=== PATIENT | male | born 1935 | race Caucasian/White ===

== ENCOUNTER → 2019-01-22 08:12 | Outpatient (CLI) | payer MEDICARE ==
[2016-01-17 13:03] VITALS: BMI 25.4
[~2019-01-22 08:12] MED LIST: ASPIRIN325 MG PO; COLACE100 MG PO; DYAZIDE 37.5/251 CAP PO; ELIQUIS2.5 MG PO; FLINTSTONE1 TAB.CHEW PO; GLUCOSAMINE HC500 MG PO; LIPITOR40 MG PO; MICRO-K10 MEQ PO; NIASPAN500 MG PO; PERCOCET 10/3251 TA1 PO; VITAMIN D2000 UNIT PO
== END | disposition home or self-care (01) ==
LOC: D.CT 08:12
PROVIDERS: ATTEND Family Medicine
DX: R91.8 Other nonspecific abnormal finding of lung field (principal)

== ENCOUNTER → 2019-02-13 08:15 | Outpatient (CLI) | payer MEDICARE ==
[2016-01-17 13:03] VITALS: BMI 25.4
== END | disposition home or self-care (01) ==
LOC: D.MRI 08:15
PROVIDERS: ATTEND Family Medicine
DX: K86.9 Disease of pancreas, unspecified (principal)

== ENCOUNTER 2019-03-27 06:29 | Outpatient (CLI) | payer MEDICARE ==
[~2019-03-27] VITALS: Ht 188 cm; Wt 86.4 kg
[2019-03-27 07:50] LABS: BASOPHILS 0 % (0-2); EOSINOPHILS 0 % (0-7); HEMATOCRIT 45.7 % (42.0-54.0); HEMOGLOBIN 15.6 g/dL (13.5-17.5); IMMATURE GRANULOCYTES 0.2 % (0-5); LYMPHOCYTES 11.7 % (15-50); MCHC 34.1 g/dL (31.0-37.0); MCV 93.8 fL (80.0-100.0); MEAN PLATELET VOLUME 9.8 fL (7.4-10.4); MONOCYTES 0.6 % (2-11); NEUTROPHILS 87.5 % (40-80); PLATELET COUNT 215 10x3/uL (130-400); RBC 4.87 10x6/uL (4.20-6.10); RDW 12.9 % (11.5-14.5); WBC 8.4 10x3/uL (4.8-10.8)
[2019-03-27 07:56] LABS: APTT 26.8 SECONDS (22.8-39.4); INR 0.94 (0.85-1.17); PROTIME 12.5 SECONDS (11.6-15.0)
[2019-03-27 08:01] LABS: CALCIUM 9.6 mg/dL (8.5-10.1); CARBON DIOXIDE 28.2 mmol/L (21.0-32.0); CREATININE - SERUM 1.2 mg/dL (0.6-1.3); POTASSIUM - SERUM 4.2 mmol/L (3.5-5.1)
[2019-03-27] MEDS ORDERED: ASPIRIN81 MG PO (08:24)
[2019-03-27 08:33] VITALS: BP 143/85; Ht 188 cm; Wt 86.4 kg
[2019-03-27] MEDS ORDERED: PREDNISONE50 MG PO (08:45)
[2019-03-27] MEDS ORDERED: BENADRYL50 MG PO (08:46)
--- NOTE | 2019-03-27 13:44 | NUR ---
1300 IV REMOVED AND INSTRUCTIONS GIVEN TO PT AND .
== END 2019-03-27 13:30 | disposition home or self-care (01) ==
LOC: D.SP 06:29 → D.RAD 09:00 → D.SP 13:30
PROVIDERS: Radiology Vascular & Interventional Radiology; ATTEND Family Medicine
DX: K86.89 Other specified diseases of pancreas (principal)

== ENCOUNTER 2019-04-29 07:40 | Inpatient (IN) | payer MEDICARE ==
[2019-04-28 08:36] LABS: BASOPHILS 0.6 % (0-2); EOSINOPHILS 5.5 % (0-7); HEMATOCRIT 40.9 % (42.0-54.0); HEMOGLOBIN 14.1 g/dL (13.5-17.5); IMMATURE GRANULOCYTES 0.1 % (0-5); LYMPHOCYTES 32.1 % (15-50); MCH 31.7 pg (26.0-34.0); MCHC 34.5 g/dL (31.0-37.0); MCV 91.9 fL (80.0-100.0); MEAN PLATELET VOLUME 9.2 fL (7.4-10.4); MONOCYTES 10.9 % (2-11); NEUTROPHILS 50.8 % (40-80); RBC 4.45 10x6/uL (4.20-6.10); RDW 13.1 % (11.5-14.5); WBC 7.2 10x3/uL (4.8-10.8)
[2019-04-28 08:45] LABS: PLATELET COUNT 165 10x3/uL (130-400)
[2019-04-28 08:59] LABS: ANION GAP 8.8 mmol/L (8-16); CALCIUM 8.8 mg/dL (8.5-10.1); CREATININE - SERUM 1.3 mg/dL (0.6-1.3); POTASSIUM - SERUM 3.8 mmol/L (3.5-5.1)
[~2019-04-29] VITALS: Ht 188 cm; Wt 89.8 kg
[~2019-04-29 07:40] MED LIST changes: +ASPIRIN81 MG PO; +BENADRYL50 MG PO; +MULTI-DAY VITAM1 TAB PO; +PREDNISONE50 MG PO
[2019-04-29 07:59] VITALS: BP 129/81; BMI 25.4
--- NOTE | 2019-04-29 08:27 | NUR ---
2 UNITS PRBCS ON STANDBY AND NOT TO TRANSFUSE PER DR. ANDREWS.
--- NOTE | 2019-04-29 13:45 | NUR ---
REC'D FROM SUGERY SUITE AT TIME EASILY TO AROUSED WHEN NAME IS CALLED. RESP EVEN AND UNLABORED WITH NO DISTRESS NOTED. HAS 02 IN USE VIA N/C @ 2L/M. CAN EXPRESS NEEDS AND WANTS. 3 LAP SITES NOTED TO GABRIELLE. FRANCISCO DRAIN NOTED. ASSESSMENT COMPLETED. AND C/L IN REACH AT BEDSIDE.
[2019-04-29 13:54] VITALS: BP 136/73
[2019-04-29 17:19] VITALS: BP 136/73; BMI 25.4
--- NOTE | 2019-04-29 17:47 | NUR ---
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 FELT THAT MEDICATION WOULD BE TO STRONG AT THE MOMENT. AWAITING RESPONSE.
--- NOTE | 2019-04-29 17:49 | NUR ---
REC'D CALL BACK FROM DR. MENG REC'D NEW ORDERS FOR APAP 650 MG EVERY 6 HRS PRN PAIN. WAS MADE AWARE OF NEW ORDERS. C/L IN REACH AT BEDSIDE.
[2019-04-29 20:00] VITALS: BP 140/81
[2019-04-30] VITALS: BP 118/64
--- NOTE | 2019-04-30 01:12 | NUR ---
I have reviewed this patient and I concur with the Shift Assessment completed by the Licensed Practical Nurse today this shift.
[2019-04-30 04:00] VITALS: BP 105/56
[2019-04-30 05:16] LABS: BASOPHILS 0 % (0-2); EOSINOPHILS 0 % (0-7); HEMOGLOBIN 12.1 g/dL (13.5-17.5); IMMATURE GRANULOCYTES 0.3 % (0-5); LYMPHOCYTES 10.3 % (15-50); MCH 30.9 pg (26.0-34.0); MCHC 32.7 g/dL (31.0-37.0); MEAN PLATELET VOLUME 9.7 fL (7.4-10.4); MONOCYTES 12.2 % (2-11); NEUTROPHILS 77.2 % (40-80); PLATELET COUNT 183 10x3/uL (130-400); RBC 3.92 10x6/uL (4.20-6.10); RDW 13.3 % (11.5-14.5)
[2019-04-30 05:18] LABS: ANION GAP 12.5 mmol/L (8-16); CALCIUM 8.4 mg/dL (8.5-10.1); CARBON DIOXIDE 25.7 mmol/L (21.0-32.0); CREATININE - SERUM 1.3 mg/dL (0.6-1.3); POTASSIUM - SERUM 4.2 mmol/L (3.5-5.1)
[2019-04-30 05:41] LABS: MCV 94.4 fL (80.0-100.0); WBC 11.8 10x3/uL (4.8-10.8)
[2019-04-30 08:23] VITALS: BP 100/49
[2019-04-30 10:31] VITALS: Ht 188 cm; Wt 89.8 kg
[2019-04-30 12:27] VITALS: BP 101/49
[2019-04-30 16:26] VITALS: BP 114/65
[2019-04-30 19:30] VITALS: BP 156/87
[2019-05-01] VITALS: BP 159/87
[2019-05-01 04:00] VITALS: BP 157/84
[2019-05-01 05:57] LABS: BASOPHILS 0.2 % (0-2); EOSINOPHILS 0 % (0-7); HEMATOCRIT 33.7 % (42.0-54.0); HEMOGLOBIN 10.9 g/dL (13.5-17.5); IMMATURE GRANULOCYTES 0.3 % (0-5); MCH 30.4 pg (26.0-34.0); MCHC 32.3 g/dL (31.0-37.0); MCV 93.9 fL (80.0-100.0); MEAN PLATELET VOLUME 9.6 fL (7.4-10.4); MONOCYTES 12.9 % (2-11); NEUTROPHILS 72.6 % (40-80); PLATELET COUNT 164 10x3/uL (130-400); RBC 3.59 10x6/uL (4.20-6.10); RDW 13.5 % (11.5-14.5); WBC 12.5 10x3/uL (4.8-10.8)
[2019-05-01 06:27] LABS: CALCIUM 8.3 mg/dL (8.5-10.1); CARBON DIOXIDE 27.6 mmol/L (21.0-32.0); CREATININE - SERUM 1.1 mg/dL (0.6-1.3); POTASSIUM - SERUM 3.6 mmol/L (3.5-5.1)
--- NOTE | 2019-05-01 08:00 | NUR ---
PATIENT LAYING IN BED. REQUESTS TO GET UP TO CHAIR. NEW LINENS PROVIDED. IV THERAPY DC'ED FROM LEFT HAND WITH TIP INTACT BECAUSE IT WAS LEAKING. CL IN REACH. CHAIR ALARM ON. WCTM
--- NOTE | 2019-05-01 08:24 | NUR ---
I have reviewed this patient and I concur with the Shift Assessment completed by the Licensed Practical Nurse today this shift.
[2019-05-01 10:00] VITALS: BP 132/80
--- NOTE | 2019-05-01 10:02 | NUR ---
NUTRITION F/U CHART REVIEWED. PT STARTED ON CLEAR LIQUID DIET. WILL CONTINUE TO MONITOR DIET ADVANCEMENT, PO INTAKE. RD FOLLOWING
--- NOTE | 2019-05-01 11:30 | NUR ---
IV THERAPY RESITED TO LEFT FOREARM. IV RESTARTED AT 30 ML PER EMAR. WALKED 150 FT WITH . BACK IN BED. CL IN REACH. BED ALARM ON. WCTM
[2019-05-01 13:47] VITALS: BP 102/67
--- NOTE | 2019-05-01 14:16 | NUR ---
PATIENT TOOK ANOTHER 150 FOOT WALK DOWN THE HALLWAY WITH . STATED THAT HE IS NO MORE PAIN AT THIS TIME AFTER HIS WALK. CL IN REACH. WCTM
[2019-05-01 18:09] VITALS: BP 128/79
--- NOTE | 2019-05-01 20:05 | NUR ---
LYING IN BED. ALERT AND ORIENTED. CONFUSED AT TIMES. IRRITABLE. SCDS PLACED ON PT. RESP EVEN AND NONLABORED. FRANCISCO DRAIN TO LT ABD HAS BLOODY DRAINAGE IN BULB. LAP SITE X2 NOTED WITH OLD DRAINAGE. PASSING GAS. BS ARE HYPOACTIVE. NS @ 30 MLHR INFUSING IN LT FOREARM. BED ALARM ON FOR PT SAFETY. SR ELEVATED X2. CL IN REACH. NO DISTRESS.
--- NOTE | 2019-05-01 22:51 | NUR ---
MEDICATED WITH TYLENOL FOR C/O ABD PAIN. CL IN REACH. BED ALARM ON
[2019-05-02] VITALS: BP 144/71
--- NOTE | 2019-05-02 02:33 | NUR ---
RESTING ON RT SIDE IN BED WITH EYES CLOSED. RESP NONLABORED. NO DISTRESS. BED ALARM ON. CL IN REACH.
[2019-05-02 04:00] VITALS: BP 133/73
[2019-05-02 05:26] LABS: BASOPHILS 0.1 % (0-2); EOSINOPHILS 1.6 % (0-7); HEMATOCRIT 31.7 % (42.0-54.0); HEMOGLOBIN 10.5 g/dL (13.5-17.5); IMMATURE GRANULOCYTES 0.2 % (0-5); LYMPHOCYTES 17.6 % (15-50); MCHC 33.1 g/dL (31.0-37.0); MCV 93.5 fL (80.0-100.0); MEAN PLATELET VOLUME 9.5 fL (7.4-10.4); MONOCYTES 14.9 % (2-11); NEUTROPHILS 65.6 % (40-80); PLATELET COUNT 164 10x3/uL (130-400); RBC 3.39 10x6/uL (4.20-6.10); RDW 13.4 % (11.5-14.5); WBC 10.3 10x3/uL (4.8-10.8)
[2019-05-02 05:38] LABS: AMYLASE - SERUM 48 U/L (25-115); CALC OSMOLALITY 283 mosm/kg (275-300); CALCIUM 7.9 mg/dL (8.5-10.1); CARBON DIOXIDE 26.4 mmol/L (21.0-32.0); CHLORIDE - SERUM 107 mmol/L (98-107); CREATININE - SERUM 0.9 mg/dL (0.6-1.3); GLUCOSE 109 mg/dL (74-106); POTASSIUM - SERUM 3.1 mmol/L (3.5-5.1); SODIUM 142 mmol/L (136-145); eGFR NON AFRICAN AMERICAN 85 mL/min (90-120)
[2019-05-02 05:52] LABS: UREA NITROGEN 13 mg/dL (7-18)
--- NOTE | 2019-05-02 08:39 | NUR ---
PATIENT UP IN CHAIR. CHAIR ALARM ON. PROVIDED FRESH WATER. CL IN REACH. URINAL IN REACH. TM
--- NOTE | 2019-05-02 09:21 | MORECARE ---
CASE MANAGEMENT DISCHARGE SUMMARY PATIENT: DAYRON CARPENTER UNIT: [id number] ADM DATE: 04/29/19 AGE: 84 : 35 SEX: M ROOM/BED: D.2212 AUTHOR: AIYANA JAMES PHYSICIAN: REFERRING PHYSICIAN: ARIELA ANDREWS MD DATE OF SERVICE: 05/02/19 Discharge Plan Patient Name: DAYRON CARPENTER [facility] [facility] 1935 Planned Disposition: Home or Self Care Anticipated Discharge Date: Discharge Date: Expected LOS: Initial Reviewer: [email or web address] Initial Review Date: 04/29/2019 Generated: 05/02/19 10:21 am DCPIA - Discharge Planning Initial Assessment Updated by [email or web address]: Maricarmen Eagle on 05/02/19 9:20 am * Is the patient Alert and Oriented? Yes * How many steps to enter\exit or inside your home? * PCP [facility] * Pharmacy [facility] * Preadmission Environment Home with Family * ADLs Independent * Equipment None * List name and contact numbers for known caregivers / representatives who currently or will assist patient after discharge: GAYLE CARPENTER (SPOUSE ) [phone] * Verbal permission to speak to the caregivers and representatives has been obtained from the patient. N/A * Community resources currently utilized None * Additional services required to return to the preadmission environment? No * Can the patient safely return to the preadmission environment? Yes * Has this patient been hospitalized within the prior 30 days at any hospital? No Patient Name: DAYRON CARPENTER Page [id number] at 0921 All edits/amendments must be made on the electronic document DICTATION DATE: 05/02/19920 PYTHON ENGINEER: SHELDON 05/02/19920 RPT#: [id number] DC DATE: STATUS: ADM IN [facility] [address] [place] [address] END OF REPORT
--- NOTE | 2019-05-02 09:28 | MORECARE ---
CASE MANAGEMENT DISCHARGE SUMMARY PATIENT: DAYRON CARPENTER UNIT: [id number] ADM DATE: 04/29/19 AGE: 84 : 35 SEX: M ROOM/BED: D.2212 AUTHOR: JACOB,DOC PHYSICIAN: REFERRING PHYSICIAN: ARIELA ANDREWS MD DATE OF SERVICE: 05/02/19 Discharge Plan Patient Name: DAYRON CARPENTER Facility: [facility]:[place] : 1935 Planned Disposition: Home or Self Care Anticipated Discharge Date: Discharge Date: Expected LOS: Initial Reviewer: [email or web address] Initial Review Date: 04/29/2019 Generated: 05/02/19 10:27 am Comments DCP- Discharge Planning Updated by [email or web address]: Maricarmen Eagle on 05/02/19 8:[address] Patient Name: DAYRON CARPENTER Admission Status: Elective Accout number: [id number] Admission Date: 04-29-2019 : 1935 Admission Diagnosis:BENIGN NEOPLASM OF PANCREAS Attending: ARIELA ANDREWS Current LOS: 3 Anticipated DC Date: Planned Disposition: Home or Self Care Primary Insurance: MEDICARE A & B Discharge Planning Comments: CM met with patient to complete initial dc planning assessment. CM educated patient on the CM role and verbal consent given by patient to complete assessment. Patient lives at home with his where he is independent with his care. At discharge patient plans to return home and feels this is a safe discharge. CM discussed availability of home health, rehab services, and medical equipment. He does not use or need any. [facility] served and explained. Patient denied known discharge needs at this time. CM will continue to follow and will assist as needed with dc plans/needs. Soft Hat Binder: Maricarmen Eagle DCPIA - Discharge Planning Initial Assessment Updated by [email or web address]: Maricarmen Eagle on 05/02/19 9:20 am * Is the patient Alert and Oriented? Yes * How many steps to enter\exit or inside your home? * PCP [facility] * [facility]acy [facility] * Preadmission Environment Home with Family * ADLs Independent * Equipment None * List name and contact numbers for known caregivers / representatives who currently or will assist patient after discharge: GAYLE CARPENTER (SPOUSE ) [phone] * Verbal permission to speak to the caregivers and representatives has been obtained from the patient. N/A * Community resources currently utilized None * Additional services required to return to the preadmission environment? No * Can the patient safely return to the preadmission environment? Yes * Has this patient been hospitalized within the prior 30 days at any hospital? No Coverage Notice Reviewer: [id number] Elaina Eagle Notice Issued Date-Time: 05/02/2019 8:30 Notice Type: IM Discharge Notice Notice Delivered To: Patient Relationship to Patient: Yarn Wrapper Name: Delivery Method: HAND - Hand Delivered Larisa Days: Prior Verbal Notification: Recipient Understood Notice: Yes Recipient Signature: Yes Med Rec Note Co-signed by Attending: Coverage Notice Comment: Last DP export: 05/02/19 8:21 a Patient Name: DAYRON CARPENTER Page [id number] at 0928 All edits/amendments must be made on the electronic document DICTATION DATE: 05/02/19926 PULP PILER: SHELDON 05/02/19926 RPT#: [id number] DC DATE: STATUS: ADM IN [facility] [address] [place] [address] END OF REPORT
[2019-05-02 09:30] VITALS: BP 132/78
[2019-05-02] MEDS ORDERED: ULTRAM50 MG PO (12:39)
[2019-05-02 13:50] VITALS: BP 121/69
--- NOTE | 2019-05-02 14:35 | NUR ---
IV THERAPY DC'ED FROM LEFT FOREARM TIP INTACT. DISCHARGE INSTRUCTIONS GIVEN. PATIENT AND VERBALIZED UNDERSTANDING. HIREN CARPENTER SIGNED PAPERWORK. WHEELED TO FRONT BY MYSELF.
--- NOTE | 2019-05-05 09:24 | MORECARE ---
CASE MANAGEMENT DISCHARGE SUMMARY PATIENT: DAYRON CARPENTER UNIT: [id number] ADM DATE: 04/29/19 AGE: 84 : 35 SEX: M ROOM/BED: D.2212 AUTHOR: JACOBDOC PHYSICIAN: REFERRING PHYSICIAN: ARIELA ANDREWS MD DATE OF SERVICE: 05/05/19 Discharge Plan Patient Name: DAYRON CARPENTER Facility: [facility]:[place] : 1935 Planned Disposition: Home or Self Care Anticipated Discharge Date: Discharge Date: 05/02/2019 Expected LOS: Initial Reviewer: [email or web address] Initial Review Date: 04/29/2019 Generated: 05/05/19 10:24 am Comments DCP- Discharge Planning Updated by [email or web address]: Maricarmen Eagle on 05/02/19 8:[address] Patient Name: DAYRON CARPENTER Admission Status: Elective Accout number: [id number] Admission Date: 04-29-2019 : 1935 Admission Diagnosis:BENIGN NEOPLASM OF PANCREAS Attending: ARIELA ANDREWS Current LOS: 3 Anticipated DC Date: Planned Disposition: Home or Self Care Primary Insurance: MEDICARE A & B Discharge Planning Comments: CM met with patient to complete initial dc planning assessment. CM educated patient on the CM role and verbal consent given by patient to complete assessment. Patient lives at home with his where he is independent with his care. At discharge patient plans to return home and feels this is a safe discharge. CM discussed availability of home health, rehab services, and medical equipment. He does not use or need any. [facility] served and explained. Patient denied known discharge needs at this time. CM will continue to follow and will assist as needed with dc plans/needs. Foundation Engineer: Maricarmen Eagle DCPIA - Discharge Planning Initial Assessment Updated by [email or web address]: Maricarmen Eagle on 05/02/19 9:20 am * Is the patient Alert and Oriented? Yes * How many steps to enter\exit or inside your home? * [facility]CP [facility] * Preadmission Environment Home with Family * ADLs Independent * Equipment None * List name and contact numbers for known caregivers / representatives who currently or will assist patient after discharge: GAYLE CARPENTER (SPOUSE ) [phone] * Verbal permission to speak to the caregivers and representatives has been obtained from the patient. N/A * Community resources currently utilized None * Additional services required to return to the preadmission environment? No * Can the patient safely return to the preadmission environment? Yes * Has this patient been hospitalized within the prior 30 days at any hospital? No Coverage Notice Reviewer: [email or web address] Elaina Eagle Notice Issued Date-Time: 05/02/2019 8:30 Notice Type: IM Discharge Notice Notice Delivered To: Patient Relationship to Patient: Cement Handler Name: Delivery Method: HAND - Hand Delivered Larisa Days: Prior Verbal Notification: Recipient Understood Notice: Yes Recipient Signature: Yes Med Rec Note Co-signed by Attending: Coverage Notice Comment: Last DP export: 05/02/19 8:28 a Patient Name: DAYRON CARPENTER Page [id number] at 0924 All edits/amendments must be made on the electronic document DICTATION DATE: 05/05/19923 DRY CLEANING COUNTER CLERK: SHELDON 05/05/19923 RPT#: [id number] DC DATE:05/02/19 STATUS: DIS IN [facility] [address] [place] [address] END OF REPORT
--- NOTE | 2019-05-06 13:44 | OP ---
PATIENT NAME: DAYRON CARPENTER MEDICAL RECORD: [id number] :[birth year] LOCATION:D.MS [id number] ADMISSION DATE:04/29/19 SURGEON: PAWEL ANDREWS MD DATE OF OPERATION: 04/29/2019 PREOPERATIVE DIAGNOSES: 1. IPMN of pancreatic tail. 2. Hypertension. POSTOPERATIVE DIAGNOSES: 1. IPMN of pancreatic tail. 2. Hypertension. 3. Left liver cyst. PROCEDURES: 1. 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 2. Unroofing of left liver cyst. SURGEON: Pawel Andrews MD REPORT OF PROCEDURE: The patient's abdomen was prepped and draped in a sterile fashion. A skin incision was made in the midline in the upper abdomen and electrocautery was used to dissect through the subcutaneous tissues and fascia and I bluntly entered the abdominal cavity. Once inside, we placed a GelPort. Through the GelPort wound protector, we were able to analyze the patient's abdominal cavity and could feel the large mass in the pancreas just posterior to the stomach. A 12-mm trocar was placed in the left subcostal region and another was placed in the left abdomen just lateral to the umbilicus. Once the abdomen was insufflated, then we began our dissection by taking down the short gastrics of the greater curvature of the stomach using the Harmonic scalpel. We continued this dissection all the way over the extent of the greater curvature of the stomach up to the esophageal hiatus. Once we had this freed, then we began taking down some of the lateral attachments to the patient's spleen. We continued this dissection until we were able to mobilize the spleen medially and then we took down some of the inferior attachments using Harmonic scalpel and encountered the lesser pole vessels. These were clipped proximally and distally and ligated in standard fashion. At this point, the spleen was freed up from its superior attachments using Harmonic scalpel and was essentially free except for its attachments to the pancreas. We then scored the peritoneum overlying the pancreas and was able to get posterior to the pancreas, and we began elevating and dissecting this tissue out. We could see the splenic vein. We were able to dissect the splenic vein free laparoscopically and then transected this with a 45 white load Endo-ROBYN stapler. The splenic artery was just superior and anterior to the pancreas, and this was dissected free from surrounding tissues and again transected with a 45 white load Endo-ROBYN stapler. At this point, the pancreas was dissected proximally until we had a core of what appeared to be normal-appearing pancreatic tissue proximal to the large cystic mass. We then transected the pancreas using a 45 white load Endo-ROBYN stapler. The pancreas and the peritoneal attachments were then dissected out laterally until we were finally able to dissect it completely free from the surrounding tissues. This was removed from the abdominal cavity and sent off for frozen section, which revealed no evidence of malignancy on the proximal pancreatic margin. We then inspected the remainder of the abdominal bed and saw no evidence of any active bleeding. The pancreatic vein and artery were clipped just proximal to where the stapler was fired, and we placed clips on the OPERATIVE REPORT [id number] DAYRON CARPENTER superior and inferior aspect of the pancreas where there was some oozing from the pancreatic vessels. We then irrigated the pancreatic stump and could not see any evidence of any pancreatic fluid leakage. The pancreatic duct was not visualized, but the staple line was noted to be intact. The patient had a large liver cyst on the most lateral aspect of the left lobe of the liver. I decided to unroof the cyst using electrocautery, and there was noted to be spillage of clear fluid. We completely unroofed the anterior aspect of the cyst and irrigated this out with normal saline. The cyst wall was sent off for permanent specimen. At this point, a 15 round Wyatt drain was inserted through the left lateral trocar site fascia and was sutured into place with 3-0 nylon. This rested just distal to the remaining pancreatic tissue. We then removed the ports and insufflation. The trocar site fascias were closed with interrupted 0 Vicryls and the midline fascia was closed with running #1 loop PDS times 2. The wounds were infused with a total of 10 mL of 0.25% Marcaine with epinephrine and then closed with chris. The wounds were then dressed appropriately. COMPLICATIONS: None. CONDITION: Stable. ANESTHESIA: General endotracheal and local. BLOOD LOSS: 50 mL. TRANSINT:[id number] Voice Confirmation ID: [id number] DOCUMENT ID: [id number] PAWEL ANDREWS MD at 1344 CC: TABBY DELVALLE [id number] DICTATION DATE: 04/29/19 1314 HOROLOGIST: 04/29/192125 DIS IN 05/02/19 [place] [address]170 [facility]
== END 2019-05-02 15:05 | disposition home or self-care (01) | DRG 407 ==
LOC: D.OPS 07:40 → D.PAN 10:00 → D.OPS 10:00 → D.PAN 11:45 → D.OPS 11:45 → D.MS 13:06 → D.OPS 13:31 → D.MS 05-02 15:05
PROVIDERS: ADMIT Surgery; ATTEND Surgery
PROC: 0F5 Hepatobiliary System and Pancreas, Destruction (ICD-10-PCS; 2019-04-29)
PROC: 0FBG0ZZ Excision of Pancreas, Open Approach (ICD-10-PCS; principal; 2019-04-29 10:00)
PROC: 07TP0ZZ Resection of Spleen, Open Approach (ICD-10-PCS; 2019-04-29 10:00)
DX: D13.6 Benign neoplasm of pancreas (principal); I10 Essential (primary) hypertension; K76.89 Other specified diseases of liver; J44.9 Chronic obstructive pulmonary disease, unspecified

== ENCOUNTER → 2019-06-06 08:13 | Outpatient (CLI) | payer MEDICARE ==
[2019-04-30 10:31] VITALS: BMI 25.4
[~2019-06-06 08:13] MED LIST changes: +ULTRAM50 MG PO
== END | disposition home or self-care (01) ==
LOC: D.CT 08:13
PROVIDERS: ATTEND Family Medicine
DX: R31.21 Asymptomatic microscopic hematuria (principal)